=== PATIENT | female | born 1965 | race Caucasian/White ===

== ENCOUNTER 2020-05-28 13:31 | Inpatient (IN) | payer BC, OTHER ==
[~2020-05-28] VITALS: Ht 165.1 cm; Wt 80.5 kg
[2020-05-28] MEDS ORDERED: SODIUM CHLORIDE 0.9% 1,000 ML IV ONE (14:00)
[2020-05-28 15:57] LABS: Basophils # (auto) 0.1 10 ^3/uL (0-0.2); Eosinophils # (auto) 0 10 ^3/uL (0-0.8); Lymphocytes # (auto) 1.6 10 ^3/uL (0.4-5.4); Monocytes # (auto) 1.1 10 ^3/uL (0-1.3)
[2020-05-28 15:58] LABS: Basophils % (auto) 0.5 % (0.0-2.0); Eosinophils % (auto) 0.3 % (0.0-7.0); Hematocrit 31.1 % (36.0-46.0); Hemoglobin 10.4 g/dL (12.2-16.2); Lymphocytes % (auto) 14.6 % (10.0-50.0); Mean Corpuscular Hemoglobin 26.5 pg (28.0-32.0); Mean Corpuscular Hgb Conc. 33.5 g/dL (32.0-36.0); Mean Corpuscular Volume 79.2 fL (80.0-100.0); Monocytes % (auto) 10.1 % (0.0-12.0); Neutrophils # (auto) 8.2 10 ^3/uL (1.6-8.6); Neutrophils % (auto) 74.5 % (37.0-80.0); Red Blood Cells 3.93 10^6/uL (4.0-5.20); Red Cell Distribution Width 16.4 % (11.8-14.3)
[2020-05-28 16:12] LABS: Platelet Count (auto) 814 10^3/uL (140-450)
[2020-05-28 16:28] LABS: Alanine Aminotransferase 11 U/L (13-56); Albumin 2.4 g/dL (3.4-5.0); Anion Gap 10 (5-15); Blood Urea Nitrogen 15 mg/dL (7-18); Calcium 11.3 mg/dL (8.5-10.1); Carbon Dioxide 32 mmol/L (21-32); Chloride 84 mmol/L (98-107); Glucose 151 mg/dL (74-106); Sodium 126 mmol/L (136-145)
[2020-05-28 16:29] LABS: Lactic Acid w/Reflex 2.1 mmol/L (0.4-2.0)
[2020-05-28 16:35] LABS: Alkaline Phosphatase 162 U/L (45-117); Aspartate Aminotransferase 10 U/L (15-37); BUN/Creatinine Ratio 13.3; GFR African American 64 mL/min; GFR Non-African American 53 mL/min; Total Protein 8.5 g/dL (6.4-8.2)
[2020-05-28 16:39] LABS: INR 1.1 (0.9-1.15); Partial Thromboplastin Time 25.5 sec (23.0-31.2)
[2020-05-28 17:04] LABS: Potassium 1.9 mmol/L (3.5-5.1)
[2020-05-28] MEDS: metroNIDAZOLE 500MG/100ML 100 ML IV ONE (17:45)
[2020-05-28] MEDS ORDERED: cefTRIAXone 1GM/50ML D5W 50 ML IV ONE (17:45)
[2020-05-28] MEDS ORDERED: FURO20TA3 PO (18:02)
[2020-05-28] MEDS ORDERED: SPIR50TA5 PO (18:02)
[2020-05-28 23:55] LABS: BUN/Creatinine Ratio 12.4; Calcium 11.5 mg/dL (8.5-10.1)
[2020-05-29 00:04] LABS: Potassium 2.3 mmol/L (3.5-5.1)
[2020-05-29] MEDS: metroNIDAZOLE 500MG/100ML 100 ML IV ONE (00:05)
[2020-05-29] MEDS: ONDANSETRON HCL 4 MG/2 ML VIAL IV PRN ×4 (00:06→18:28)
[2020-05-29] MEDS ORDERED: DEXTROSE (50%) 50ML SYRG IV PRN (00:30)
[2020-05-29] MEDS: POTASSIUM CHL 20MEQ/100ML 100 ML IV SCH ×6 (00:30→08:48)
[2020-05-29] MEDS ORDERED: POTASSIUM CHL 20 Meq TABLET PO ONE ×2 (00:30→12:00)
[2020-05-29] MEDS ORDERED: cloNIDine HCL 0.1 MG TAB PO PRN (00:30)
[2020-05-29] MEDS ORDERED: SODIUM CHLORIDE 0.9% 1,000 ML IV SCH (01:00)
[2020-05-29] MEDS ORDERED: HYDROcodone-ACET 5/325MG TAB PO ONE (03:45)
[2020-05-29] MEDS ORDERED: metroNIDAZOLE 500MG/100ML 100 ML IV SCH (06:00)
[2020-05-29] MEDS ORDERED: PIPERACILLIN-TAZOB 3.375GM 100 ML IV SCH (06:00)
[2020-05-29] MEDS: InsuLIN REG 1unit/0.01ml Soln (100units/ml) SC SCH ×4 (07:00→21:53)
[2020-05-29] MEDS: LEVOTHYROXINE SODIUM 100 MCG TAB PO SCH (07:00)
[2020-05-29] MEDS: ACCU-CHEK COMFORT CURVE STRIP VI SCH ×4 (07:00→21:53)
[2020-05-29] MEDS ORDERED: PROMETHAZINE HCL 25 MG/ML 1ML IV ONE (08:00)
[2020-05-29] MEDS ORDERED: PROMETHAZINE HCL 25 MG/ML 1ML ONE (08:14)
[2020-05-29] MEDS ORDERED: POTASSIUM CHL 20MEQ/100ML 200 ML IV ONE (08:39)
[2020-05-29] MEDS ORDERED: POTASSIUM EFFERVESENT TAB 25 MEQ PO ONE ×2 (09:15→12:00)
[2020-05-29] MEDS: METOPROLOL SUCCINATE XL 50 MG TAB PO SCH (10:00)
[2020-05-29] MEDS ORDERED: amLODIPine BESYLATE 5 MG TAB PO SCH (10:00)
[2020-05-29] MEDS: SPIRONOLACTONE 25 MG TAB PO SCH (10:00)
[2020-05-29] MEDS: PANTOPRAZOLE 40 MG TAB PO SCH (10:00)
[2020-05-29] MEDS: HYDROmorphone HCL 2 MG/ML VL IV PRN ×3 (12:39→22:27)
[2020-05-29 14:00] LABS: Magnesium 1.8 mg/dL (1.6-2.6)
[2020-05-29] MEDS ORDERED: LACTULOSE 20Gm/30ML SOLN PO ONE (16:30)
[2020-05-29 16:51] LABS: Urine Bacteria NONE SEEN /hpf (None Seen); Urine Blood Negative /uL (Negative); Urine Specific Gravity 1.013 (1.001-1.035); Urine WBC 3 /hpf (0 - 5)
[2020-05-29 17:08] LABS: Albumin 1.7 g/dL (3.4-5.0); Calcium 10.1 mg/dL (8.5-10.1)
[2020-05-29 17:11] LABS: BUN/Creatinine Ratio 16.3; Bilirubin, Total 0.7 mg/dL (0.2-1.0); Total Protein 6.5 g/dL (6.4-8.2)
[2020-05-29 17:27] LABS: Potassium 2.8 mmol/L (3.5-5.1)
[2020-05-29] MEDS: ALBUMIN 25% 100 ML IV SCH (18:27)
[2020-05-29] MEDS: SODIUM CHLORIDE 0.9% 1,000 ML IV SCH (21:36)
[2020-05-29] MEDS: LACTULOSE 20Gm/30ML SOLN PO SCH (21:53)
[2020-05-30] MEDS: HYDROmorphone HCL 2 MG/ML VL IV PRN ×5 (00:30→20:45)
[2020-05-30] MEDS: ALBUMIN 25% 100 ML IV SCH ×2 (00:44→09:45)
[2020-05-30] MEDS: SODIUM CHLORIDE 0.9% 1,000 ML IV SCH ×3 (02:36→22:35)
[2020-05-30] MEDS: InsuLIN REG 1unit/0.01ml Soln (100units/ml) SC SCH ×4 (06:25→22:31)
[2020-05-30] MEDS: LEVOTHYROXINE SODIUM 100 MCG TAB PO SCH (06:25)
[2020-05-30] MEDS: ACCU-CHEK COMFORT CURVE STRIP VI SCH ×4 (06:31→22:32)
[2020-05-30] MEDS ORDERED: GADOTERATE MEG 10 MMOL/20ml INJ (0.5MMOL/ml) IV ONE (08:14)
[2020-05-30] MEDS ORDERED: POTASSIUM EFFERVESENT TAB 25 MEQ PO ONE (09:30)
[2020-05-30] MEDS: CEFTRIAXONE SODIUM 2 GM in D5W 5% 50 ML IV SCH (10:45)
[2020-05-30] MEDS: METOPROLOL SUCCINATE XL 50 MG TAB PO SCH (10:50)
[2020-05-30] MEDS: SPIRONOLACTONE 25 MG TAB PO SCH (10:50)
[2020-05-30] MEDS: LACTULOSE 20Gm/30ML SOLN PO SCH ×2 (10:50→22:31)
[2020-05-30] MEDS: PANTOPRAZOLE 40 MG TAB PO SCH (10:50)
[2020-05-30 11:00] LABS: Basophils # (auto) 0 10 ^3/uL (0-0.2); Basophils % (auto) 0.2 % (0.0-2.0); Eosinophils # (auto) 0 10 ^3/uL (0-0.8); Eosinophils % (auto) 0.2 % (0.0-7.0); Hematocrit 26.5 % (36.0-46.0); Hemoglobin 8.8 g/dL (12.2-16.2); Lymphocytes # (auto) 1.1 10 ^3/uL (0.4-5.4); Lymphocytes % (auto) 8.6 % (10.0-50.0); Mean Corpuscular Hemoglobin 26.2 pg (28.0-32.0); Mean Corpuscular Hgb Conc. 33.2 g/dL (32.0-36.0); Mean Corpuscular Volume 79.1 fL (80.0-100.0); Monocytes # (auto) 0.9 10 ^3/uL (0-1.3); Monocytes % (auto) 7.3 % (0.0-12.0); Neutrophils # (auto) 10.7 10 ^3/uL (1.6-8.6); Neutrophils % (auto) 83.7 % (37.0-80.0); Platelet Count (auto) 625 10^3/uL (140-450); Red Blood Cells 3.35 10^6/uL (4.0-5.20); Red Cell Distribution Width 16.3 % (11.8-14.3); White Blood Cell 12.7 10^3/uL (4.4-10.8)
[2020-05-30 11:08] LABS: Albumin 2.4 g/dL (3.4-5.0); BUN/Creatinine Ratio 9.3; Calcium 10.6 mg/dL (8.5-10.1); Magnesium 1.6 mg/dL (1.6-2.6); Phosphorus 1.8 mg/dL (2.5-4.90); Total Protein 6.6 g/dL (6.4-8.2)
[2020-05-30 11:29] LABS: Potassium 2.5 mmol/L (3.5-5.1)
[2020-05-30] MEDS ORDERED: POTASSIUM CHL 20 Meq TABLET PO ONE (13:45)
[2020-05-30] MEDS ORDERED: POTASSIUM PHOSPHATE 44 MEQ in D5W 5% 250 ML IV ONE (13:45)
[2020-05-30] MEDS ORDERED: INFLUENZA QUAD 2020-2021 0.5 ML SYRG IM ONE (15:45)
[2020-05-30 17:00] VITALS: BP 118/76
[2020-05-30 22:00] VITALS: BP 104/67
[2020-05-31] MEDS: LEVOTHYROXINE SODIUM 100 MCG TAB PO SCH (06:29)
[2020-05-31] MEDS: ACCU-CHEK COMFORT CURVE STRIP VI SCH ×4 (06:30→22:01)
[2020-05-31] MEDS: InsuLIN REG 1unit/0.01ml Soln (100units/ml) SC SCH ×4 (06:30→22:02)
[2020-05-31 09:00] VITALS: BP 137/87
[2020-05-31] MEDS: HYDROmorphone HCL 2 MG/ML VL IV PRN ×4 (10:02→21:23)
[2020-05-31] MEDS: SPIRONOLACTONE 25 MG TAB PO SCH (10:02)
[2020-05-31] MEDS: PANTOPRAZOLE 40 MG TAB PO SCH (10:03)
[2020-05-31] MEDS: METOPROLOL SUCCINATE XL 50 MG TAB PO SCH (10:03)
[2020-05-31] MEDS: LACTULOSE 20Gm/30ML SOLN PO SCH ×2 (10:03→22:01)
[2020-05-31] MEDS: SODIUM CHLORIDE 0.9% 1,000 ML IV SCH ×2 (12:19→17:09)
[2020-05-31] MEDS: CEFTRIAXONE SODIUM 2 GM in D5W 5% 50 ML IV SCH (12:20)
[2020-05-31 13:00] VITALS: BP_SYST 110; BP_SYST 128; BP_DIAS 54; BP_DIAS 76
[2020-05-31 17:00] VITALS: BP_SYST 118; BP_SYST 129; BP_DIAS 67; BP_DIAS 76
[2020-05-31 17:44] LABS: Basophils # (auto) 0 10 ^3/uL (0-0.2); Basophils % (auto) 0.2 % (0.0-2.0); Eosinophils # (auto) 0.1 10 ^3/uL (0-0.8); Monocytes # (auto) 0.9 10 ^3/uL (0-1.3); Neutrophils # (auto) 7.2 10 ^3/uL (1.6-8.6); Platelet Count (auto) 558 10^3/uL (140-450)
[2020-05-31 17:46] LABS: Eosinophils % (auto) 0.6 % (0.0-7.0); Hematocrit 26.5 % (36.0-46.0); Hemoglobin 9.1 g/dL (12.2-16.2); Lymphocytes # (auto) 1.4 10 ^3/uL (0.4-5.4); Lymphocytes % (auto) 14.7 % (10.0-50.0); Mean Corpuscular Hemoglobin 26.9 pg (28.0-32.0); Mean Corpuscular Hgb Conc. 34.1 g/dL (32.0-36.0); Mean Corpuscular Volume 78.9 fL (80.0-100.0); Monocytes % (auto) 9.5 % (0.0-12.0); Red Blood Cells 3.36 10^6/uL (4.0-5.20); Red Cell Distribution Width 16.8 % (11.8-14.3); White Blood Cell 9.6 10^3/uL (4.4-10.8)
[2020-05-31 17:54] LABS: BUN/Creatinine Ratio 10.9; Calcium 9.4 mg/dL (8.5-10.1)
[2020-05-31 22:00] VITALS: BP 129/71
[2020-06-01] MEDS: ONDANSETRON HCL 4 MG/2 ML VIAL IV PRN (04:17)
[2020-06-01] MEDS: SODIUM CHLORIDE 0.9% 1,000 ML IV SCH ×2 (04:56→14:45)
[2020-06-01 05:11] VITALS: BP 130/75
[2020-06-01] MEDS: LEVOTHYROXINE SODIUM 100 MCG TAB PO SCH (06:27)
[2020-06-01] MEDS: ACCU-CHEK COMFORT CURVE STRIP VI SCH ×4 (06:27→22:17)
[2020-06-01] MEDS: InsuLIN REG 1unit/0.01ml Soln (100units/ml) SC SCH ×4 (06:45→22:17)
[2020-06-01] MEDS: CEFTRIAXONE SODIUM 2 GM in D5W 5% 50 ML IV SCH (09:55)
[2020-06-01] MEDS: LACTULOSE 20Gm/30ML SOLN PO SCH ×2 (09:55→22:12)
[2020-06-01] MEDS: SPIRONOLACTONE 25 MG TAB PO SCH (09:55)
[2020-06-01] MEDS: PANTOPRAZOLE 40 MG TAB PO SCH (09:55)
[2020-06-01] MEDS: METOPROLOL SUCCINATE XL 50 MG TAB PO SCH (09:56)
[2020-06-01] MEDS: HYDROmorphone HCL 2 MG/ML VL IV PRN ×3 (11:14→20:00)
[2020-06-01 13:00] VITALS: BP 116/79
[2020-06-01 17:00] VITALS: BP 94/63
[2020-06-01 22:02] VITALS: BP 124/76
[2020-06-02] MEDS: SODIUM CHLORIDE 0.9% 1,000 ML IV SCH ×3 (00:45→20:45)
[2020-06-02] MEDS: HYDROmorphone HCL 2 MG/ML VL IV PRN ×5 (03:47→20:40)
[2020-06-02 05:40] VITALS: BP 115/77
[2020-06-02] MEDS: ACCU-CHEK COMFORT CURVE STRIP VI SCH ×4 (06:34→22:22)
[2020-06-02] MEDS: InsuLIN REG 1unit/0.01ml Soln (100units/ml) SC SCH ×4 (06:35→22:22)
[2020-06-02] MEDS: LEVOTHYROXINE SODIUM 100 MCG TAB PO SCH (06:35)
[2020-06-02] MEDS: LACTULOSE 20Gm/30ML SOLN PO SCH ×2 (09:39→22:00)
[2020-06-02] MEDS: CEFTRIAXONE SODIUM 2 GM in D5W 5% 50 ML IV SCH (09:39)
[2020-06-02] MEDS: SPIRONOLACTONE 25 MG TAB PO SCH (09:39)
[2020-06-02] MEDS: PANTOPRAZOLE 40 MG TAB PO SCH (09:39)
[2020-06-02] MEDS: METOPROLOL SUCCINATE XL 50 MG TAB PO SCH (09:40)
[2020-06-02 17:00] VITALS: BP 130/75
[2020-06-02] MEDS: ONDANSETRON HCL 4 MG/2 ML VIAL IV PRN (19:39)
[2020-06-02 22:00] VITALS: BP 118/78
[2020-06-03 05:00] VITALS: BP 124/68
[2020-06-03] MEDS: HYDROmorphone HCL 2 MG/ML VL IV PRN ×5 (05:00→22:10)
[2020-06-03] MEDS: LEVOTHYROXINE SODIUM 100 MCG TAB PO SCH (06:00)
[2020-06-03] MEDS: ACCU-CHEK COMFORT CURVE STRIP VI SCH ×4 (06:01→21:22)
[2020-06-03] MEDS: InsuLIN REG 1unit/0.01ml Soln (100units/ml) SC SCH ×4 (06:01→21:24)
[2020-06-03] MEDS: SODIUM CHLORIDE 0.9% 1,000 ML IV SCH ×2 (06:45→16:45)
[2020-06-03] MEDS: HYDROcodone-ACET 5/325MG TAB PO PRN ×3 (07:29→20:19)
[2020-06-03 08:00] VITALS: BP 110/97
[2020-06-03 09:00] VITALS: BP 110/59
[2020-06-03] MEDS: LACTULOSE 20Gm/30ML SOLN PO SCH ×2 (09:44→21:22)
[2020-06-03] MEDS: SPIRONOLACTONE 25 MG TAB PO SCH (09:44)
[2020-06-03] MEDS: METOPROLOL SUCCINATE XL 50 MG TAB PO SCH (09:45)
[2020-06-03] MEDS: PANTOPRAZOLE 40 MG TAB PO SCH (09:45)
[2020-06-03] MEDS: CEFTRIAXONE SODIUM 2 GM in D5W 5% 50 ML IV SCH (11:22)
[2020-06-03 12:00] VITALS: BP 107/71
[2020-06-03 17:00] VITALS: BP 96/62
[2020-06-03 22:00] VITALS: BP 122/71
[2020-06-04 00:17] LABS: INR 1.1 (0.9-1.15); Partial Thromboplastin Time 26.9 sec (23.0-31.2)
[2020-06-04 00:20] LABS: Albumin 2.1 g/dL (3.4-5.0); BUN/Creatinine Ratio 11.8; Calcium 10.2 mg/dL (8.5-10.1); Potassium 3.3 mmol/L (3.5-5.1)
[2020-06-04 00:25] LABS: Bilirubin, Total 0.4 mg/dL (0.2-1.0); Total Protein 6.5 g/dL (6.4-8.2)
[2020-06-04] MEDS: HYDROmorphone HCL 2 MG/ML VL IV PRN ×4 (02:13→19:37)
[2020-06-04] MEDS: SODIUM CHLORIDE 0.9% 1,000 ML IV SCH ×3 (03:26→22:45)
[2020-06-04] MEDS: HYDROcodone-ACET 5/325MG TAB PO PRN ×3 (03:26→21:55)
[2020-06-04 05:00] VITALS: BP 126/77
[2020-06-04] MEDS: ACCU-CHEK COMFORT CURVE STRIP VI SCH ×4 (06:46→21:48)
[2020-06-04] MEDS: InsuLIN REG 1unit/0.01ml Soln (100units/ml) SC SCH ×5 (06:46→21:53)
[2020-06-04] MEDS: LEVOTHYROXINE SODIUM 100 MCG TAB PO SCH (06:46)
[2020-06-04 08:00] VITALS: BP 117/82
[2020-06-04 09:00] VITALS: BP 117/82
[2020-06-04] MEDS: LACTULOSE 20Gm/30ML SOLN PO SCH ×2 (09:22→21:39)
[2020-06-04] MEDS: PANTOPRAZOLE 40 MG TAB PO SCH (09:22)
[2020-06-04] MEDS: SPIRONOLACTONE 25 MG TAB PO SCH (09:22)
[2020-06-04] MEDS: METOPROLOL SUCCINATE XL 50 MG TAB PO SCH (09:23)
[2020-06-04] MEDS: CEFTRIAXONE SODIUM 2 GM in D5W 5% 50 ML IV SCH (09:30)
[2020-06-04 12:00] VITALS: BP 127/81
[2020-06-04 17:00] VITALS: BP 104/74
[2020-06-05] VITALS: BP 107/69
[2020-06-05] MEDS: HYDROmorphone HCL 2 MG/ML VL IV PRN ×3 (01:41→14:43)
[2020-06-05] MEDS: HYDROcodone-ACET 5/325MG TAB PO PRN (04:03)
[2020-06-05] MEDS: ACCU-CHEK COMFORT CURVE STRIP VI SCH ×3 (06:30→17:15)
[2020-06-05] MEDS: LEVOTHYROXINE SODIUM 100 MCG TAB PO SCH (06:30)
[2020-06-05] MEDS: InsuLIN REG 1unit/0.01ml Soln (100units/ml) SC SCH ×3 (06:30→17:19)
[2020-06-05] MEDS: SODIUM CHLORIDE 0.9% 1,000 ML IV SCH (08:45)
[2020-06-05] MEDS ORDERED: ceFAZolin 1GM/50ML 50 ML IV ONE (09:22)
[2020-06-05] MEDS ORDERED: ceFAZolin 1GM VL ONE (09:35)
[2020-06-05] MEDS ORDERED: LIDOCAINE 1% HCL (LOCAL ANESTH.) INJ 20ML MDV ONE (09:36)
[2020-06-05] MEDS ORDERED: HEPARIN SODIUM (PORCINE) 5000 UNITS/ML 1ML VIAL ONE (09:36)
[2020-06-05] MEDS ORDERED: HEPARIN 1,000 UNITS/ml 1ML VIAL ONE (09:36)
[2020-06-05] MEDS ORDERED: MIDAZOLAM HCL 1MG/1ML-2 ML VIAL ONE (09:47)
[2020-06-05] MEDS ORDERED: fentaNYL CITRATE 100 MCG/2 ML VL ONE (09:53)
[2020-06-05] MEDS ORDERED: MEPERIDINE HCL (25 MG/ML) 1ML VIAL ONE (10:00)
[2020-06-05] MEDS ORDERED: ePHEDrine SULFATE 50 MG/ML AMP IV PRN (10:45)
[2020-06-05] MEDS ORDERED: MIDAZOLAM HCL 1MG/1ML-2 ML VIAL IV PRN (10:45)
[2020-06-05] MEDS ORDERED: MORPHINE SULFATE 4 MG/ML SYR/VIAL IV PRN (10:45)
[2020-06-05] MEDS ORDERED: ACCU-CHEK COMFORT CURVE STRIP VI ONE (10:45)
[2020-06-05] MEDS ORDERED: LABETALOL HCL 5 MG/ML 4ML SYRINGE IV PRN (10:45)
[2020-06-05] MEDS ORDERED: HYDROmorphone HCL 2 MG/ML VL IV PRN (10:45)
[2020-06-05] MEDS ORDERED: ONDANSETRON HCL 4 MG/2 ML VIAL IV PRN (10:45)
[2020-06-05] MEDS: METOPROLOL SUCCINATE XL 50 MG TAB PO SCH (11:57)
[2020-06-05] MEDS: PANTOPRAZOLE 40 MG TAB PO SCH (11:57)
[2020-06-05] MEDS: SPIRONOLACTONE 25 MG TAB PO SCH (11:58)
[2020-06-05] MEDS: LACTULOSE 20Gm/30ML SOLN PO SCH (11:58)
[2020-06-05] MEDS: CEFTRIAXONE SODIUM 2 GM in D5W 5% 50 ML IV SCH (13:01)
[2020-06-05 16:00] VITALS: BP 108/71
[2020-06-05] MEDS ORDERED: INFLUENZA QUAD 2020-2021 0.5 ML SYRG IM ONE (17:21)
[2020-06-05 17:36] VITALS: BP 108/71
[2020-06-07] MEDS ORDERED: HYDR-4833 PO (16:13)
== END 2020-06-05 18:15 | disposition home or self-care (01) | DRG 872 ==
LOC: ER 13:31 → OVERFLOW 13:32 → CENTRAL 05-30 13:30
PROVIDERS: ADMIT Nurse Practitioner; ATTEND Family Medicine
PROC: 0W9G3ZZ Drainage of Peritoneal Cavity, Percutaneous Approach (ICD-10-PCS; principal; 2020-05-29)
PROC: 05HC33Z Insertion of Infusion Device into Left Basilic Vein, Percutaneous Approach (ICD-10-PCS; 2020-05-29)
PROC: B54NZZA Ultrasonography of Left Upper Extremity Veins, Guidance (ICD-10-PCS; 2020-05-29)
PROC: 02HV33Z Insertion of Infusion Device into Superior Vena Cava, Percutaneous Approach (ICD-10-PCS; 2020-06-05)
DX: A41.9 Sepsis, unspecified organism (principal); E87.1 Hypo-osmolality and hyponatremia; D61.818 Other pancytopenia; C56.2 Malignant neoplasm of left ovary; R18.8 Other ascites; I95.9 Hypotension, unspecified; K74.60 Unspecified cirrhosis of liver; E87.6 Hypokalemia; I10 Essential (primary) hypertension; D72.829 Elevated white blood cell count, unspecified; E03.9 Hypothyroidism, unspecified; E11.9 Type 2 diabetes mellitus without complications; E66.9 Obesity, unspecified; E83.52 Hypercalcemia; R14.0 Abdominal distension (gaseous); Z20.822 Contact with and (suspected) exposure to COVID-19; R65.20 Severe sepsis without septic shock; Z23 Encounter for immunization; Z68.30 Body mass index [BMI] 30.0-30.9, adult
CPT/HCPCS: 10022; 36415; 71045; 73723; 74176; 74181; 76705; 76942; 80048; 80053; 81001; 82140; 82306; 82378; 82962; 83605; 83735; 83880; 83970; 84100; 84132; 84443; 84484; 84702; 85025; 85610; 85730; 86301; 86304; 86850; 86900; 86901; 87040; 87086; 87205; 87426; 89051; C1729; G0378; J0690; J0696; J1815; J2001; J2250; J2405; J2543; J3480; J3490; J7060; P9047